=== PATIENT | female | born 1930 | race Caucasian/White ===

== ENCOUNTER 2018-08-02 08:47 | Emergency (ER) | payer MEDICARE, OTHER ==
[2018-08-02 09:01] VITALS: BP 156/105
[2018-08-02] MEDS ORDERED: DEXAMETHASONE 10 MG/ML VIAL PO STA (09:35)
[2018-08-02] MEDS ORDERED: LORATADINE 10 MG TABLET PO STA (09:35)
--- NOTE | 2018-08-02 09:38 | ED Physician Documentation ---
History of Present Illness - Stated complaint Stated Complaint: RASH - Chief complaint Chief Complaint: General - Additonal information Additional information: 87 y/o f to ED with extremely itchy rash of three weeks dur[place] no new food lotions deterge etc no fever no oral lesions no cough no travel no NVD Review of Systems Constitutional: denies: Fever Throat: denies: Oral lesions / sores, Sore throat Respiratory: denies: Cough GI: denies: Nausea, Vomiting, Diarrhea Skin: reports: Rash Neurologic: denies: Headache PD PAST MEDICAL HISTORY - Past Medical History Cardiovascular: Hypertension, High cholesterol Respiratory: None Neuro: None Endocrine/Autoimmune: None GI: None 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 : None HEENT: Glaucoma, Chronic hearing loss Psych: None Musculoskeletal: None Derm: None - Past Surgical History Past Surgical History: Yes Ortho: Hip replacement - Present Medications Home Medications: Ambulatory Orders Medication Instructions Recorded Confirmed Aspirin 81 mg PO DAILY 08/02/18 08/02/18 Lisinopril 20 mg PO DAILY 08/02/18 08/02/18 Loratadine [Claritin] 10 mg PO DAILY #5 tablet 08/02/18 Lovastatin 20 mg PO DAILY 08/02/18 08/02/18 Multivitamin [Multivitamins] DAILY 08/02/18 predniSONE [Deltasone] 20 mg PO DAILY #5 tab 08/02/18 - Allergies Allergies/Adverse Reactions: Allergies Allergy/AdvReac Type Severity Reaction Status Date / Time shellfish derived Allergy Unknown Verified 08/02/18 09:01 - Social History Does the pt smoke?: No Smoking Status: Never smoker - Immunizations Immunizations: TDAP >10years/unknown PD ED PE NORMAL - Vitals Vital signs reviewed: Yes - General General: Alert and oriented X 3 - HEENT HEENT: Moist mucous membranes, Other (no oral lesions) - Neck Neck: Supple, no meningeal sign - Cardiac Cardiac: RRR - Respiratory Respiratory: No respiratory distress, Clear bilaterally - Abdomen Abdomen: Non tender - Derm Derm: Other (coalescing pink macular papular rash david excoriation to chest and upper back / posterior enck somewhat "darlyn tree" in pattern with possible heral patch to L sacpular region) Results - Vitals Vitals: Vital Signs - 24 hr 08/02/18 08:59 Temperature 36.8 C Heart Rate 68 Respiratory 18 Rate Blood Pressure 156/105 H O2 Saturation 100 Oxygen O2 Source Room air Departure - Departure Disposition: Home, Self Care Clinical Impression: Rash Condition: Good Instructions: ED Pityriasis Rosea Follow-Up: [facility] [Provider Group] Prescriptions: Loratadine [Claritin] 10 mg PO DAILY #5 tablet predniSONE [Deltasone] 20 mg PO DAILY #5 tab Comments: I think this rash may be a viral infection called pityriasis. I have referred you to the pbx repairer for confirmation. In the mean time I have prescribed medication to ease your symptoms Also please get your blood pressure rechecked - it was high today likely because of the discomfort you are in
== END 2018-08-02 09:50 | disposition home or self-care (01) ==
LOC: ED 08:47
DX: R21 Rash and other nonspecific skin eruption (principal); I10 Essential (primary) hypertension; E78.00 Pure hypercholesterolemia, unspecified; Z96.649 Presence of unspecified artificial hip joint; Z79.82 Long term (current) use of aspirin
CPT/HCPCS: 99283; A9270

== ENCOUNTER 2019-08-05 15:12 | Emergency (ER) | payer MEDICARE, OTHER ==
[2019-08-05 15:28] VITALS: BP 126/111
[2019-08-05 16:34] LABS: GLUCOSE, URINE (UA) NEGATIVE (NEGATIVE); KETONES,URINE (UA) NEGATIVE (NEGATIVE); LEUKOCYTE ESTERASE, URINE MODERATE (NEGATIVE); NITRITE,URINE NEGATIVE (NEGATIVE); OCCULT BLOOD,URINE LARGE (NEGATIVE); PROTEIN,URINE >=300 mg/dL (NEGATIVE); UROBILINOGEN,URINE 0.2 (NORMAL) E.U./dL (NORMAL)
[2019-08-05 16:36] LABS: BILIRUBIN,URINE NEGATIVE (NEGATIVE); CLARITY,URINE CLOUDY (CLEAR); ICTOTEST,URINE NEGATIVE
--- NOTE | 2019-08-05 16:40 | ED Physician Documentation ---
PD HPI FEMALE - Stated complaint Stated Complaint: F - Chief complaint Chief Complaint: Abd Pain - History obtained from History obtained from: Patient - History of Present Illness Timing - onset: How many days ago (3) Timing - duration: Days (3) Timing - details: Gradual onset, Still present Associated symptoms: Genital sore/lesion, Dysuria, Urinary frequency, Hematuria Similar symptoms before: Diagnosis (UTI) Recently seen: Not recently seen - Additional information Additional information: Previously healthy 88-year-old female has developed urinary urgency frequency and dysuria and she has developed soreness to the vaginal area as well as some itching. She has had all the symptoms a number of times previously she has not been this sore previously. She is noted some blood in the urine as well. She does remember having a bladder infection that she took some medication for that she had taken a number of times previously and it got rid of her bladder infection quickly and the last time that she took it it caused itching to her fingers and toes she has not taken it since. She does not remember the name of this medication but she describes it as a large pill she took twice per day for 3 days. She denies any nausea vomiting flank pain fever or discharge Review of Systems Constitutional: denies: Fever Eyes: denies: Decreased vision Ears: denies: Ear pain Nose: denies: Congestion Throat: denies: Sore throat Cardiac: denies: Chest pain / pressure, Palpitations Respiratory: denies: Dyspnea, Cough GI: denies: Abdominal Pain, Nausea, Vomiting : reports: Dysuria, Frequency Skin: denies: Rash Musculoskeletal: denies: Neck pain, Back pain, Extremity pain Neurologic: denies: Generalized weakness, Focal weakness, Numbness PD PAST MEDICAL HISTORY - Past Medical History Cardiovascular: Hypertension, High cholesterol Respiratory: None Neuro: None Endocrine/Autoimmune: None GI: None 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 : None HEENT: Glaucoma, Chronic hearing loss Psych: None Musculoskeletal: None Derm: None - Past Surgical History Past Surgical History: Yes Ortho: Hip replacement - Present Medications Home Medications: Ambulatory Orders Medication Instructions Recorded Confirmed Aspirin 81 mg PO DAILY 08/02/18 08/02/18 Loratadine [Claritin] 10 mg PO DAILY #5 tablet 08/02/18 Lovastatin 20 mg PO DAILY 08/02/18 08/02/18 Multivitamin [Multivitamins] DAILY 08/02/18 lisinopriL [Lisinopril] 20 mg PO DAILY 08/02/18 08/02/18 predniSONE [Deltasone] 20 mg PO DAILY #5 tab 08/02/18 Ciprofloxacin HCl [Cipro] 500 mg PO BID #14 tablet 08/05/19 Fluconazole [Diflucan] 150 mg PO ONCE #1 tablet 08/05/19 - Allergies Allergies/Adverse Reactions: Allergies Allergy/AdvReac Type Severity Reaction Status Date / Time shellfish derived Allergy Unknown Verified 08/05/19 15:24 - Social History Does the pt smoke?: No Smoking Status: Never smoker - Immunizations Immunizations: TDAP >10years/unknown PD ED PE NORMAL - Vitals Vital signs reviewed: Yes (tachy and hypertensve ) - General General: Alert and oriented X 3, No acute distress, Well developed/nourished - HEENT HEENT: Atraumatic, PERRL, EOMI - Neck Neck: Supple, no meningeal sign - Cardiac Cardiac: RRR, No murmur - Respiratory Respiratory: No respiratory distress, Clear bilaterally - Abdomen Abdomen: Normal bowel sounds, Soft, Non tender, Non distended, No organomegaly - Back Back: No CVA TTP, No spinal TTP - Derm Derm: Normal color, Warm and dry, No rash - Extremities Extremities: No deformity, No edema, No calf tenderness / cord - Neuro Neuro: Alert and oriented X 3, 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, No motor deficit, No sensory deficit, Normal speech Eye Opening: Spontaneous Motor: Obeys Commands Verbal: Oriented GCS Score: 15 - Psych Psych: Normal mood, Normal affect Results - Vitals Vitals: Vital Signs - 24 hr 08/05/19 15:24 Temperature 36.6 C Heart Rate 105 H Respiratory 14 Rate Blood Pressure 126/111 H O2 Saturation 96 Oxygen O2 Source Room air - Labs Labs: Laboratory Tests 08/05/19 16:25 Urine Color BROWN Urine Clarity CLOUDY Urine pH 6.0 Ur Specific [place] >=1.030 H Urine Protein >=300 H Urine Glucose (UA) NEGATIVE Urine Ketones NEGATIVE Urine Occult Blood LARGE H Urine Nitrite NEGATIVE Urine Bilirubin NEGATIVE Urine Urobilinogen 0.2 (NORMAL) Ur Leukocyte Esterase MODERATE H Ur Microscopic Review INDICATED Urine Culture Comments Not Reportable PD MEDICAL DECISION MAKING - ED course Complexity details: considered differential, d/w patient ED course: 88-year-old female with urinary tract symptoms over the past 3 days also appears to have by history candidiasis and she also appears to be allergic likely to Septra. I will place her on a course of Cipro and we will give her a dose of Diflucan as well. She will follow-up with Dr. Mae. Departure - Departure Disposition: Home, Self Care Clinical Impression: Yeast infection involving the vagina and surrounding area Urinary tract infection Qualifiers: Urinary tract infection type: acute cystitis Hematuria presence: with hematuria Qualified Code(s): N30.01 - Acute cystitis with hematuria Condition: Stable Instructions: ED UTI Cystitis Female, ED Vaginal Infec Fungal Stephanie Follow-Up: Es Mae MD [Primary Care Provider] - Prescriptions: Ciprofloxacin HCl [Cipro] 500 mg PO BID #14 tablet Fluconazole [Diflucan] 150 mg PO ONCE #1 tablet
[2019-08-05 16:41] LABS: BACTERIA,URINE Few /HPF (None Seen); RBC,URINE TNTC /HPF (0-5); SQUAMOUS EPITHELIAL CELL,UR NONE SEEN (<= Few)
[2019-08-05] MEDS ORDERED: CIPROFLOXACIN 250 MG TABLET PO STA (16:54)
[2019-08-05] MEDS ORDERED: FLUCONAZOLE 100 MG TABLET PO STA (16:55)
== END 2019-08-05 17:08 | disposition home or self-care (01) ==
LOC: ED 15:12
DX: N30.01 Acute cystitis with hematuria (principal); B37.3 Candidiasis of vulva and vagina; Z88.1 Allergy status to other antibiotic agents; I10 Essential (primary) hypertension; Z79.82 Long term (current) use of aspirin
CPT/HCPCS: 81001; 87086; 87181; 99283; 99284; A9270; 81003

== ENCOUNTER 2019-08-12 09:17 | Emergency (ER) | payer MEDICARE, OTHER ==
[2019-08-12 09:33] VITALS: BP 137/88
--- NOTE | 2019-08-12 09:51 | ED Physician Documentation ---
PD HPI FEMALE - Stated complaint Stated Complaint: FEMALE - Chief complaint Chief Complaint: UTI - History obtained from History obtained from: Patient - History of Present Illness Timing - onset: How many weeks ago (2) Timing - duration: Weeks (2) Timing - details: Gradual onset Associated symptoms: Vaginal pain, Dysuria, Urinary frequency. No: Fever, Back pain, Hematuria Recently seen: Emergency Dept - Additional information Additional information: This is an 88-year-old woman who was recently seen for a urinary tract infection and placed on Cipro a week ago. She took her last dose this morning and said that really the feeling of urgency and pain when she urinates never went away. The itching that was present is gone but she still has a lot of pain around the urethra. She tried an [id number] lidocaine preparation on it and just burned did not seem to help. She saw some blood in the urine last week but that is now gone. Denies any back pain. No fever. No vaginal discharge. No nausea or vomiting. Denies any prior genitourinary surgery. Review of Systems Constitutional: denies: Fever GI: denies: Abdominal Pain, Nausea, Vomiting : reports: Dysuria, Frequency, Other (Urgency). 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 HEENT: Glaucoma, Chronic hearing loss Psych: None Musculoskeletal: None Derm: None - Past Surgical History Past Surgical History: Yes Ortho: Hip replacement - Present Medications Home Medications: Ambulatory Orders Medication Instructions Recorded Confirmed Aspirin 81 mg PO DAILY 08/02/18 08/02/18 Loratadine [Claritin] 10 mg PO DAILY #5 tablet 08/02/18 Lovastatin 20 mg PO DAILY 08/02/18 08/02/18 Multivitamin [Multivitamins] DAILY 08/02/18 lisinopriL [Lisinopril] 20 mg PO DAILY 08/02/18 08/02/18 predniSONE [Deltasone] 20 mg PO DAILY #5 tab 08/02/18 Ciprofloxacin HCl [Cipro] 500 mg PO BID #14 tablet 08/05/19 Fluconazole [Diflucan] 150 mg PO ONCE #1 tablet 08/05/19 Amoxicillin 875 mg PO BID #20 tablet 08/12/19 - Allergies Allergies/Adverse Reactions: Allergies Allergy/AdvReac Type Severity Reaction Status Date / Time shellfish derived Allergy Unknown Verified 08/12/19 09:32 - Social History Does the pt smoke?: No Smoking Status: Never smoker - Immunizations Immunizations: TDAP >10years/unknown PD ED PE NORMAL - Vitals Vital signs reviewed: Yes - General General: Alert and oriented X 3, No acute distress, Well developed/nourished - HEENT HEENT: Atraumatic, PERRL, Moist mucous membranes - Respiratory Respiratory: No respiratory distress - Abdomen Abdomen: Soft - Female Female : Gas Maker present, Other (Urethra is a little inflamed, no open wounds noted on vulva or vaginal introitus) - Derm Derm: Normal color, No rash Results - Vitals Vitals: Vital Signs - 24 hr 08/12/19 09:29 Temperature 36.0 C L Heart Rate 83 Respiratory 14 Rate Blood Pressure 137/88 H O2 Saturation 98 Oxygen O2 Source Room air - Labs Labs: Laboratory Tests 08/12/19 09:50 Urine Color YELLOW Urine Clarity [place]. CLOUDY Urine pH 6.5 Ur Specific [place] 1.015 Urine Protein 100 H Urine Glucose (UA) NEGATIVE Urine Ketones NEGATIVE Urine Occult Blood MODERATE H Urine Nitrite NEGATIVE Urine Bilirubin NEGATIVE Urine Urobilinogen 0.2 (NORMAL) Ur Leukocyte Esterase SMALL H Urine RBC 6-10 H Urine WBC >25 H Ur Squamous Epith Cells RARE Squamous Urine Bacteria Rare Ur Microscopic Review INDICATED Urine Culture Comments INDICATED PD MEDICAL DECISION MAKING - ED course Complexity details: reviewed results, d/w patient ED course: Urine culture on Aug 05 showed E coli sensitive to Cipro. Repeat urine today still shows greater than 25 white blood cells. She is having symptoms consistent with urethritis and a little inflammation evident on even on the physical exam. Brooklynn put her on amoxicillin as the culture showed a sensitivity to ampicillin also. Have given her viscous lidocaine to try which was applied here in the emergency department to see if that will help alleviate some of the discomfort. Given her age I would be hesitant for using Pyridium. Have encouraged her to drink 70 to 80 ounces of water a day. Departure - Departure Disposition: 01 Home, Self Care Clinical Impression: Urinary tract infection Qualifiers: Urinary tract infection type: urethritis Qualified Code(s): N34.2 - Other urethritis Condition: Good Instructions: ED UTI Cystitis Female Follow-Up: Es Mae MD [Primary Care Provider] - Prescriptions: Amoxicillin 875 mg PO BID #20 tablet Comments: Make sure that you are drinking 70 to 80 ounces of water a day. May use the viscous lidocaine directly around the urethra where it is painful if it is helping you. Take the amoxicillin twice a day for 10 days. Have your urine retested with your primary care provider after he finished the antibiotic to make sure that the infection has cleared. Return if symptoms are worsening or other problems arise. Discharge Date/Time: 08/12/19 11:20
[2019-08-12 10:00] LABS: BILIRUBIN,URINE NEGATIVE (NEGATIVE); GLUCOSE, URINE (UA) NEGATIVE (NEGATIVE); KETONES,URINE (UA) NEGATIVE (NEGATIVE); LEUKOCYTE ESTERASE, URINE SMALL (NEGATIVE); NITRITE,URINE NEGATIVE (NEGATIVE); OCCULT BLOOD,URINE MODERATE (NEGATIVE); PH,URINE 6.5 PH (5.0-7.5); PROTEIN,URINE 100 mg/dL (NEGATIVE); UROBILINOGEN,URINE 0.2 (NORMAL) E.U./dL (NORMAL)
[2019-08-12 10:02] LABS: CLARITY,URINE SL. CLOUDY (CLEAR)
[2019-08-12 10:14] LABS: BACTERIA,URINE Rare /HPF (None Seen); SQUAMOUS EPITHELIAL CELL,UR RARE Squamous (<= Few)
[2019-08-12] MEDS ORDERED: LIDOCAINE VISCOUS 2% 100 ML BOTTLE MM STA (11:01)
[2019-08-12] MEDS ORDERED: LIDOCAINE VISCOUS 2% 15 ML UDC MM SCH (12:00)
== END 2019-08-12 11:20 | disposition home or self-care (01) ==
LOC: ED 09:17
DX: N34.2 Other urethritis (principal); I10 Essential (primary) hypertension; Z79.82 Long term (current) use of aspirin
CPT/HCPCS: 81001; 81003; 87086; 99283; 99284

== ENCOUNTER 2020-01-27 18:35 | Emergency (ER) | payer MEDICARE, OTHER ==
[2020-01-27 19:01] LABS: BASOPHILS % (AUTO) 0.3 %; LYMPHOCYTES # (AUTO) 1.2 10^3/uL (1.5-3.5); MEAN CORPUSCULAR HEMOGLOBIN 31.1 pg (27.0-31.0); MEAN CORPUSCULAR HGB CONC 33.3 g/dL (32.0-36.0); MEAN CORPUSCULAR VOLUME 93.2 fL (81.0-99.0); MEAN PLATELET VOLUME 9.6 fL (7.9-10.8); MONOCYTES # (AUTO) 0.5 10^3/uL (0.0-1.0); MONOCYTES % (AUTO) 3.2 %; NEUTROPHILS # (AUTO) 13.6 10^3/uL (1.5-6.6); PLT - PLATELET COUNT 259 10^3/uL (130-450); RED BLOOD COUNT 4.83 10^6/uL (4.20-5.40); RED CELL DISTRIBUTION WIDTH 13.6 % (12.0-15.0); WHITE BLOOD COUNT 15.5 x10^3/uL (4.8-10.8)
[2020-01-27 19:10] LABS: INR 1.1 (0.8-1.2); PT - PROTHROMBIN TIME 12.6 secs (9.9-12.6)
[2020-01-27 19:13] LABS: ALBUMIN 4.5 g/dL (3.2-5.5); ALBUMIN/GLOBULIN RATIO 1.4 (1.0-2.2); CREATININE 0.9 mg/dL (0.4-1.0); TOTAL PROTEIN 7.7 g/dL (6.7-8.2)
[2020-01-27 19:20] LABS: PARTIAL THROMBOPLASTIN TIME 29.3 secs (24.9-33.3)
[2020-01-27] MEDS ORDERED: SODIUM CHLORIDE 0.9% 1,000 ML IV STA (19:24)
[2020-01-27] MEDS ORDERED: IOVERSOL 320 100 ML VIAL IVP ONE ×2 (19:49→21:33)
[2020-01-27 20:18] LABS: BILIRUBIN,URINE NEGATIVE (NEGATIVE); GLUCOSE, URINE (UA) NEGATIVE (NEGATIVE); KETONES,URINE (UA) 15 mg/dL (NEGATIVE); LEUKOCYTE ESTERASE, URINE SMALL (NEGATIVE); NITRITE,URINE NEGATIVE (NEGATIVE); OCCULT BLOOD,URINE SMALL (NEGATIVE); PH,URINE 6.5 PH (5.0-7.5); PROTEIN,URINE TRACE mg/dL (NEGATIVE); UROBILINOGEN,URINE 0.2 (NORMAL) E.U./dL (NORMAL)
[2020-01-27 20:21] LABS: CLARITY,URINE HAZY (CLEAR)
[2020-01-27 20:34] LABS: BACTERIA,URINE Few /HPF (None Seen); SQUAMOUS EPITHELIAL CELL,UR MANY Squamous (<= Few)
[2020-01-27 20:35] LABS: YEAST,URINE PRESENT
[2020-01-27] MEDS ORDERED: AMOX/CLAV 875 MG/125 MG TABLET PO STA (21:19)
[2020-01-27] MEDS ORDERED: ACETAMINOPHEN 325 MG TABLET PO STA (21:32)
--- NOTE | 2020-01-27 21:39 | CT Report ---
PROCEDURE: Abdomen/Pelvis W INDICATIONS: abd pain, BRBPR CONTRAST: IV CONTRAST: Optiray 320 ml: 100 PO CONTRAST: *NO PO CONTRAST TECHNIQUE: After the administration of oral and intravenous contrast, 5 mm thick sections acquired from the diap hragms to the symphysis. 5 mm thick coronal and sagittal reformats were acquired. For radiation dos e reduction, the following was used: automated exposure control, adjustment of mA and/or kV accordin g to patient size. COMPARISON: None. FINDINGS: Image quality: There is limited visualization of the lower pelvis secondary to artifact from bilatera l hip arthroplasties. ABDOMEN: Lung bases: Lung bases are clear. Heart size is normal. Solid organs: Liver and spleen are normal in size and enhancement. Gallbladder demonstrates multipl e stones without wall thickening Biliary system is non dilated. Pancreas enhances normally. No adr enal nodules. Kidneys demonstrate normal size and enhancement, without hydronephrosis. Peritoneum and bowel: Bowel loops are nonobstructive. There is thickening and pericolonic inflammato ry change within the distal transverse colon extending to the descending colon. Minimal scattered div erticula are present. In addition, there is a less prominent appearance of incomplete distention vers us thickening in the descending colon extending to the transverse colon. No free fluid or free air. Nodes and vessels: No retroperitoneal or mesenteric adenopathy by size criteria. Aorta and inferior vena cava are normal in size. Miscellaneous: No ventral hernias. PELVIS: Genitourinary: Bladder wall thickness is normal. Miscellaneous: No inguinal hernias or adenopathy. Bones: No suspicious bony lesions. No vertebral body compression fractures. IMPRESSION: 1. Thickening and pericolonic inflammatory change within the distal transverse colon extending to the descending colon as above. In addition, there is a less prominent appearance of thickening versus in complete distention of the ascending and transverse colon. Overall appearance of the left colon is mo st suggestive of colitis suspected be to related to diverticulitis. However, given appearance of righ t colon and transverse colon as described above, early developing colitis within these regions cannot be excluded. A a more diffuse appearance of colonic inflammation can be seen with infection/inflamma tion or potentially ischemia. 2. Cholelithiasis without imaging appearance of cholecystitis. Reviewed by: Jasmin Jalloh MD on 01/27/2020 9:38 PM PDT Approved by: Jasmin Jalloh MD on 01/27/2020 9:38 PM PDT Station ID: [id number]
--- NOTE | 2020-01-27 21:46 | ED Physician Documentation ---
PD HPI ABD PAIN - Stated complaint Stated Complaint: BLOOD IN STOOL, ABD PX - Chief complaint Chief Complaint: Abd Pain - History obtained from History obtained from: Patient - History of Present Illness Timing - onset: Today Timing - duration: Days (1) Timing - details: Gradual onset Pain level max: 5 Pain level now: 3 Quality: Cramping, Aching, Pain Location: RLQ, Suprapubic, LLQ Radiation: No: Chest, , Lower back, Left flank, Left shoulder, Right flank, Right shoulder, Upper back Improved by: Other (Nothing) Worsened by: Moving, Palpation Associated symptoms: Diarrhea, Hematochezia. No: Fever, Nausea, Vomiting, Hematemesis, Constipation, Melena, Dysuria, Hematuria, Chest pain, Dizzy, Near syncope / syncope Similar symptoms before: Has not had sx before Recently seen: Not recently seen Review of Systems Ten Systems: 10 systems reviewed and negative Constitutional: denies: Fever, Chills Cardiac: denies: Chest pain / pressure Respiratory: denies: Cough GI: denies: Nausea, Vomiting : denies: Dysuria, Frequency, Hesitancy, Incontinent, Hematuria Skin: denies: Rash Musculoskeletal: denies: Neck pain, Back pain Neurologic: denies: Headache PD PAST MEDICAL HISTORY - Past Medical History Cardiovascular: Hypertension, High cholesterol Respiratory: None Neuro: None Endocrine/Autoimmune: None GI: 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 HEENT: Glaucoma, Chronic hearing loss Psych: None Musculoskeletal: None Derm: None - Past Surgical History Past Surgical History: Yes Ortho: Hip replacement - Present Medications Home Medications: Ambulatory Orders Medication Instructions Recorded Confirmed Aspirin 81 mg PO DAILY 08/02/18 08/02/18 Loratadine [Claritin] 10 mg PO DAILY #5 tablet 08/02/18 Lovastatin 20 mg PO DAILY 08/02/18 08/02/18 Multivitamin [Multivitamins] DAILY 08/02/18 lisinopriL [Lisinopril] 20 mg PO DAILY 08/02/18 08/02/18 predniSONE [Deltasone] 20 mg PO DAILY #5 tab 08/02/18 Ciprofloxacin HCl [Cipro] 500 mg PO BID #14 tablet 08/05/19 Fluconazole [Diflucan] 150 mg PO ONCE #1 tablet 08/05/19 Amoxicillin 875 mg PO BID #20 tablet 08/12/19 Amox/Clav 875/125 [Augmentin] 1 each PO Q8H #30 tablet 01/27/20 - Allergies Allergies/Adverse Reactions: Allergies Allergy/AdvReac Type Severity Reaction Status Date / Time shellfish derived Allergy Unknown Verified 01/27/20 18:39 - Social History Does the pt smoke?: No Smoking Status: Never smoker Does the pt drink ETOH?: No Does the pt have substance abuse?: No - Immunizations Immunizations: TDAP >10years/unknown - POLST Patient has POLST: No PD ED PE NORMAL - Vitals Vital signs reviewed: Yes - General General: Alert and oriented X 3, No acute distress, Well developed/nourished - HEENT HEENT: Moist mucous membranes - Neck Neck: Supple, no meningeal sign - Cardiac Cardiac: RRR, Strong equal pulses - Respiratory Respiratory: No respiratory distress, Clear bilaterally - Abdomen Abdomen: Soft, Non distended, Other (Mild diffuse tenderness to palpation along the lower aspect of the abdomen. No peritoneal signs) - Rectal Rectal: Pt declined - Derm Derm: Warm and dry - Extremities Extremities: No edema - Neuro Neuro: Alert and oriented X 3 - Psych Psych: Normal mood, Normal affect Results - Vitals Vitals: Vital Signs - 24 hr 01/27/20 01/27/20 01/27/20 18:39 18:43 20:43 Temperature 36.4 C L Heart Rate 102 H 100 98 Respiratory 18 16 16 Rate Blood Pressure 146/116 H 136/89 H 135/85 H O2 Saturation 97 99 99 01/27/20 22:03 Temperature Heart Rate 72 Respiratory 18 Rate Blood Pressure 142/83 H O2 Saturation 97 Oxygen O2 Source Room air - Labs Labs: Laboratory Tests 01/27/20 01/27/20 01/27/20 18:51 18:51 18:51 WBC 15.5 H RBC 4.83 Hgb 15.0 Hct 45.0 MCV 93.2 MCH 31.1 H MCHC 33.3 RDW 13.6 Plt Count 259 MPV 9.6 Neut # (Auto) 13.6 H Lymph # (Auto) 1.2 L [place] # (Auto) 0.5 Eos # (Auto) 0.0 Baso # (Auto) 0.0 Absolute Nucleated RBC 0.00 Nucleated RBC % 0.0 PT INR APTT Sodium 137 Potassium 3.7 Chloride 99 L Carbon Dioxide 23 Anion Gap 15.0 H BUN 24 H Creatinine 0.9 Estimated GFR (MDRD) 59 L Glucose 162 H Calcium 9.0 Total Bilirubin 1.0 AST 27 ALT 20 Alkaline Phosphatase 68 Total Protein 7.7 Albumin 4.5 Globulin 3.2 Albumin/Globulin Ratio 1.4 Lipase 27 Urine Color Urine Clarity Urine pH Ur Specific [place] Urine Protein Urine Glucose (UA) Urine Ketones Urine Occult Blood Urine Nitrite Urine Bilirubin Urine Urobilinogen Ur Leukocyte Esterase Urine RBC Urine WBC Ur Squamous Epith Cells Urine Bacteria Urine Yeast Ur Microscopic Review Urine Culture Comments Blood Type O POSITIVE Antibody Screen NEGATIVE 01/27/20 01/27/20 18:51 19:50 WBC RBC Hgb Hct MCV MCH MCHC RDW Plt Count MPV Neut # (Auto) Lymph # (Auto) [place] # (Auto) Eos # (Auto) Baso # (Auto) Absolute Nucleated RBC Nucleated RBC % PT 12.6 INR 1.1 APTT 29.3 Sodium Potassium Chloride Carbon Dioxide Anion Gap BUN Creatinine Estimated GFR (MDRD) Glucose Calcium Total Bilirubin AST ALT Alkaline Phosphatase Total Protein Albumin Globulin Albumin/Globulin Ratio Lipase Urine Color YELLOW Urine Clarity HAZY Urine pH 6.5 Ur Specific [place] 1.020 Urine Protein TRACE Urine Glucose (UA) NEGATIVE Urine Ketones 15 H Urine Occult Blood SMALL H Urine Nitrite NEGATIVE Urine Bilirubin NEGATIVE Urine Urobilinogen 0.2 (NORMAL) Ur Leukocyte Esterase SMALL H Urine RBC 6-10 H Urine WBC 11-25 H Ur Squamous Epith Cells MANY Squamous H Urine Bacteria Few Urine Yeast PRESENT Ur Microscopic Review INDICATED Urine Culture Comments NOT INDICATED Blood Type Antibody Screen - Rads (name of study) CT abdomen pelvis Radiology: Prelim report reviewed, EMP read contemporaneously, See rad report PD MEDICAL DECISION MAKING - ED course Complexity details: reviewed results, re-evaluated patient, considered differential, d/w patient ED course: Patient with what appears to be diverticulitis. We will start on Augmentin for home. She is well-appearing, nontoxic. No anemia. Tolerating p.o. without difficulty. Pain well controlled. No evidence of abscess or perforation. Patient counseled regarding signs and symptoms for which I believe and urgent re-evaluation would be necessary. Patient with good understanding of and agreement to plan and is comfortable going home at this time This document was made in part using voice recognition software. While efforts are made to proofread this document, sound alike and grammatical errors may occur. 1. Thickening and pericolonic inflammatory change within the distal transverse colon extending to the descending colon as above. In addition, there is a less prominent appearance of thickening versus incomplete distention of the ascending and transverse colon. Overall appearance of the left colon is most suggestive of colitis suspected be to related to diverticulitis. However, given appearance of right colon and transverse colon as described above, early developing colitis within these regions cannot be excluded. A a more diffuse appearance of colonic inflammation can be seen with infection/inflammation or potentially ischemia. 2. Cholelithiasis without imaging appearance of cholecystitis. Departure - Departure Disposition: 01 Home, Self Care Clinical Impression: Diverticulitis, Hematochezia Condition: Good Instructions: ED Diverticulitis Follow-Up: Es Mae MD [Primary Care Provider] - Within 1 week Prescriptions: Amox/Clav 875/125 [Augmentin] 1 each PO Q8H #30 tablet Comments: Take all antibiotics until gone. Return if you worsen. Follow-up with your doctor next week for further care. Discharge Date/Time: 01/27/20 22:11
[2020-01-27 22:11] VITALS: BP 142/83
== END 2020-01-27 22:11 | disposition home or self-care (01) ==
LOC: ED 18:35
DX: K57.33 Diverticulitis of large intestine without perforation or abscess with bleeding (principal); K80.20 Calculus of gallbladder without cholecystitis without obstruction; I10 Essential (primary) hypertension; Z79.82 Long term (current) use of aspirin
CPT/HCPCS: 36415; 74177; 80053; 81001; 83690; 85025; 85610; 85730; 86850; 86900; 86901; 96360; 96361; 99284; A9270; Q9967; 81003; 87086

== ENCOUNTER 2020-09-03 16:15 | Outpatient (CLI) | payer MEDICARE, OTHER ==
--- NOTE | 2020-09-03 16:47 | XRAY Report ---
PROCEDURE: Wrist 3 View LT INDICATIONS: L wrist Px, L wrist deformity TECHNIQUE: 3 views of the wrist were acquired. COMPARISON: None. FINDINGS: Bones: Diffuse osteopenia. Severe background osteoarthritic changes involving the first and second ca rpometacarpal joints as well as the triscaphe joint. Scapholunate interval is maintained. Mildly comminuted, impacted distal left radial fracture with intra-articular extension. Overlying sof t tissue swelling. Carpal bones appear normally aligned. No suspicious bony lesions. Soft tissues: No suspicious soft tissue calcifications. IMPRESSION: 1. Mildly comminuted, impacted distal left radial fracture with intra-articular extension. 2. Diffuse osteopenia. 3. Severe background degenerative changes of the left first and second carpometacarpal joints and tri scaphe joint. Findings were discussed with Dr. Mae at 1644 hrs. Reviewed by: Tian Brownlee MD on 09/03/2020 4:46 PM PST Approved by: Tian Brownlee MD on 09/03/2020 4:46 PM PST Station ID: [id number]
== END 2020-09-03 16:16 | disposition home or self-care (01) ==
LOC: DI 16:15
PROVIDERS: ATTEND Internal Medicine
DX: M25.532 Pain in left wrist (principal); M21.932 Unspecified acquired deformity of left forearm; S52.572A Other intraarticular fracture of lower end of left radius, initial encounter for closed fracture; M19.032 Primary osteoarthritis, left wrist; M85.832 Other specified disorders of bone density and structure, left forearm

== ENCOUNTER 2020-09-03 17:39 | Emergency (ER) | payer MEDICARE, OTHER ==
[2020-09-03 17:56] VITALS: BP 150/115
[2020-09-03] MEDS ORDERED: ACETAMINOPHEN 325 MG TABLET PO STA (18:15)
--- NOTE | 2020-09-03 18:17 | ED Physician Documentation ---
PD HPI UPPER EXT INJURY - Stated complaint Stated Complaint: FALL, LEFT WRIST PX - Chief complaint Chief Complaint: Trauma Ext - History obtained from History obtained from: Patient - History of Present Illness Location: Left, Wrist Type of injury: Fall Where injury occurred: Home Timing - onset: How many hours ago (2) Timing - duration: Hours (2) Timing - details: Abrupt onset Pain level max: 5 Pain level now: 4 Improved by: Rest, Ice, Immobilization Worsened by: Moving, Palpating Associated symptoms: Swelling. No: Weakness, Numbness, Tingling Contributing factors: No: Anticoagulated - Additonal information Additional information: Patient had a trip and fall today, landing on the left wrist. Has deformity to the wrist. Had an x-ray with her doctor, reveals a fractured distal radius. Sent here for a splint. 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 : None HEENT: Glaucoma, Chronic hearing loss Psych: None Musculoskeletal: None Derm: None - Past Surgical History Past Surgical History: Yes Ortho: Hip replacement - Present Medications Home Medications: Ambulatory Orders Medication Instructions Recorded Confirmed Aspirin 81 mg PO DAILY 08/02/18 08/02/18 Loratadine [Claritin] 10 mg PO DAILY #5 tablet 08/02/18 Lovastatin 20 mg PO DAILY 08/02/18 08/02/18 Multivitamin [Multivitamins] DAILY 08/02/18 lisinopriL [Lisinopril] 20 mg PO DAILY 08/02/18 08/02/18 predniSONE [Deltasone] 20 mg PO DAILY #5 tab 08/02/18 Ciprofloxacin HCl [Cipro] 500 mg PO BID #14 tablet 08/05/19 Fluconazole [Diflucan] 150 mg PO ONCE #1 tablet 08/05/19 Amoxicillin 875 mg PO BID #20 tablet 08/12/19 Amox/Clav 875/125 [Augmentin] 1 each PO Q8H #30 tablet 01/27/20 - Allergies Allergies/Adverse Reactions: Allergies Allergy/AdvReac Type Severity Reaction Status Date / Time shellfish derived Allergy Unknown Verified 09/03/20 17:51 - Social History Does the pt smoke?: No Smoking Status: Never smoker Does the pt drink ETOH?: No Does the pt have substance abuse?: No - Immunizations Immunizations are current?: No Immunizations: TDAP >10years/unknown - POLST Patient has POLST: No PD ED PE NORMAL - Vitals Vital signs reviewed: Yes - General General: Alert and oriented X 3, No acute distress - HEENT HEENT: Moist mucous membranes - Neck Neck: Supple, no meningeal sign - Derm Derm: Warm and dry - Extremities Extremities: Other (Left wrist with swelling and mild deformity to the dorsal aspect of the wrist. Neurovascularly intact. Otherwise normal exam of the left upper extremity) - Neuro Neuro: Alert and oriented X 3 Results - Vitals Vitals: Vital Signs - 24 hr 09/03/20 17:51 Temperature 36.6 C Heart Rate 102 H Respiratory 16 Rate Blood Pressure 150/115 H O2 Saturation 95 Oxygen O2 Source Room air Procedures - Splint (location) L wrist Splint applied by: Physician, Tech Type of splint: Fiberglass, Short arm, Volar cock up Other: Patient tolerated well, No complications, Neurovascular intact PD MEDICAL DECISION MAKING - ED course Complexity details: considered differential, d/w patient ED course: Outside films were reviewed. Patient placed in a volar splint. We will have he r follow-up with orthopedics for further care. Neurovascularly intact. Patient counseled regarding signs and symptoms for which I believe and urgent re- evaluation would be necessary. Patient with good understanding of and agreement to plan and is comfortable going home at this time This document was made in part using voice recognition software. While efforts are made to proofread this document, sound alike and grammatical errors may occur. Departure - Departure Disposition: 01 Home, Self Care Clinical Impression: Distal radius fracture, left Qualifiers: Encounter type: initial encounter Fracture type: closed Fracture morphology: unspecified fracture morphology Qualified Code(s): S52.502A - Unspecified fracture of the lower end of left radius, initial encounter for closed fracture Condition: Good Instructions: ED Fx Upper Ext Follow-Up: Es Mae MD [Primary Care Provider] - [facility] [Provider Group] - Within 1 week Comments: Follow up with orthopedics for further care. Give the orthopedic office a call tomorrow. I spoke with Dr. Katelynn dong. Stay in the splint until released by orthopedics. Discharge Date/Time: 09/03/20 18:31
== END 2020-09-03 18:31 | disposition home or self-care (01) ==
LOC: ED 17:39
DX: S52.502A Unspecified fracture of the lower end of left radius, initial encounter for closed fracture (principal); W01.0XXA Fall on same level from slipping, tripping and stumbling without subsequent striking against object, initial encounter; Y93.K1 Activity, walking an animal; Y92.009 Unspecified place in unspecified non-institutional (private) residence as the place of occurrence of the external cause; I10 Essential (primary) hypertension; Z79.82 Long term (current) use of aspirin
CPT/HCPCS: 29125; 99282

== ENCOUNTER 2020-10-14 07:00 | Outpatient (CLI) | payer MEDICARE, OTHER ==
--- NOTE | 2020-10-14 16:16 | XRAY Report ---
PROCEDURE: Wrist 3 View LT INDICATIONS: COLLES FX OF L RADIUS TECHNIQUE: 3 views of the wrist were acquired. COMPARISON: 09/03/2020 FINDINGS: Bones: Subacute, comminuted fracture of the distal radius. Fracture lucencies extend to the radiocarp al joint. There is prominence of the scapholunate interval. Soft tissues: No suspicious soft tissue calcifications. IMPRESSION: 1. Subacute, comminuted, intra-articular distal radius fracture. 2. Slight prominence of the scapholunate interval. Ligamentous injury cannot be excluded. Reviewed by: Alyssa Rowell MD, PhD on 10/14/2020 4:15 PM PDT Approved by: Alyssa Rowell MD, PhD on 10/14/2020 4:15 PM PDT Station ID: [id number]
== END 2020-10-14 23:59 | disposition home or self-care (01) ==
LOC: DI.N 07:00
PROVIDERS: ATTEND Orthopaedic Surgery
DX: S52.572D Other intraarticular fracture of lower end of left radius, subsequent encounter for closed fracture with routine healing (principal); R93.6 Abnormal findings on diagnostic imaging of limbs